=== PATIENT | male | born 1975 | race Caucasian/White ===

== ENCOUNTER 2018-08-11 13:18 | Emergency (ER) | payer BC ==
[2018-08-11 13:45] VITALS: BP 134/79
--- NOTE | 2018-08-11 14:38 | UC ---
UC General HPI - HPI Summary HPI Summary: Pt presents with c/o sudden onset of malaise, joint pain, fever, chills X 2 days. Pt denies cough, ST, or ear pain. Pt is concerned that he has lyme disease. 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 and is "always in tall grass" - History of Current Complaint Chief Complaint: UCGeneralIllness Stated Complaint: FEVER JOINT PAIN CHILLS Time Seen by Provider: 08/11/18 14:28 Hx Obtained From: Patient Onset/Duration: Sudden Onset, Lasting Days, Still Present Timing: Constant Onset Severity: Mild Current Severity: Mild Pain Intensity: 2 Associated Signs & Symptoms: Positive: Fever, Weakness, Other - joint pain, - Allergy/Home Medications Allergies/Adverse Reactions: Allergies Allergy/AdvReac Type Severity Reaction Status Date / Time bee venom protein (honey bee) Allergy Hives Verified 08/11/18 13:38 PMH/Surg Hx/FS Hx/Imm Hx Previously Healthy: Yes - Surgical History Surgical History: Yes Surgery Procedure, Year, and Place: [place] teeth extracted - Family History Known Family History: Positive: Cardiac Disease - Social History Occupation: Employed Full-time Lives: With Family Alcohol Use: Daily Alcohol Amount: 2 beers Substance Use Type: Marijuana Smoking Status (MU): Never Smoked Tobacco Have You Smoked in the Last Year: Yes - marijuana Review of Systems All Other Systems Reviewed And Are Negative: Yes Constitutional: Positive: Fever, Chills, Fatigue Skin: Positive: Negative Eyes: Positive: Negative ENT: Positive: Negative Respiratory: Positive: Negative Cardiovascular: Positive: Negative Gastrointestinal: Positive: Negative Genitourinary: Positive: Negative Motor: Positive: Negative Neurovascular: Positive: Negative Musculoskeletal: Positive: Myalgia Neurological: Positive: Negative Psychological: Positive: Negative Is Patient Immunocompromised?: No Physical Exam Triage Information Reviewed: Yes Appearance: Well-Appearing Vital Signs: Initial Vital Signs Temp 98.5 F 08/11/18 13:39 Pulse 79 08/11/18 13:39 Resp 18 08/11/18 13:39 BP 134/79 08/11/18 13:39 Pulse Ox 97 08/11/18 13:39 Vital Signs Reviewed: Yes Eye Exam: Normal ENT Exam: Normal Dental Exam: Normal Neck exam: Normal Respiratory Exam: Normal Cardiovascular Exam: Normal Musculoskeletal Exam: Normal Neurological Exam: Normal Psychological Exam: Normal Skin Exam: Normal Course/Dx - Differential Dx - Multi-Symptom Differential Diagnoses: Other - Diagnoses Provider Diagnosis: Malaise and fatigue Discharge - Sign-Out/Discharge Documenting (check all that apply): Patient Departure All imaging exams completed and their final reports reviewed: No Studies - Discharge Plan Condition: Stable Disposition: HOME Patient Education Materials: Fatigue (ED) Referrals: [facility] [Outside] - If Needed No Primary Care Phys,NOPCP [Primary Care Provider] - Additional Instructions: Please establish care with a PCP as soon as possible. - Billing Disposition and Condition Condition: STABLE Disposition: Home
[2018-08-11 19:03] LABS: ABS Lymphocytes 0.6 10^3/ul (1.0-4.8); ABS Monocytes 0.3 10^3/ul (0-0.8); ABS Neutrophils 2.7 10^3/ul (1.5-7.7); Hematocrit 46 % (42-52); Hemoglobin 16.3 g/dL (14.0-18.0); Mean Corpuscular HGB Conc 35 g/dL (31-36); Mean Corpuscular Hemoglobin 33 pg (27-31); Mean Corpuscular Volume 93 fL (80-94); Mean Platelet Volume 9.5 fL (7.4-10.4); Nucleated Red Blood Cells % 0.1; Platelet Count 142 10^3/uL (150-450); Red Blood Count 4.97 10^6 /uL (4.18-5.48); Red Cell Distribution Width 13 % (10-15); White Blood Count 3.7 10^3/uL (3.5-10.8)
== END 2018-08-11 14:55 | disposition home or self-care (01) ==
LOC: UCEAST 13:18
DX: R53.81 Other malaise (principal); R50.9 Fever, unspecified
CPT/HCPCS: 36415; 85025; 86618; 99211; G0463

== ENCOUNTER 2019-05-20 20:54 | Inpatient (IN) | payer BC, OTHER ==
[2019-05-20 22:11] LABS: ABS Eosinophils 0.1 10^3/ul (0-0.6); ABS Lymphocytes 2.1 10^3/ul (1.0-4.8); ABS Monocytes 0.7 10^3/ul (0-0.8); Eosinophil % 0.7 %; Hematocrit 45 % (42-52); Hemoglobin 16.3 g/dL (14.0-18.0); Lymphocyte % 23.7 %; Mean Corpuscular HGB Conc 36 g/dL (31-36); Mean Corpuscular Hemoglobin 33 pg (27-31); Mean Corpuscular Volume 91 fL (80-94); Mean Platelet Volume 9.2 fL (7.4-10.4); Platelet Count 239 10^3/uL (150-450); Red Blood Count 4.95 10^6 /uL (4.18-5.48); Red Cell Distribution Width 12 % (10-15)
[2019-05-20 22:24] LABS: ALT 17 U/L (7-52); AST 28 U/L (13-39); Albumin 4.9 g/dL (3.2-5.2); Albumin/Globulin Ratio 1.6 (1-3); Alkaline Phosphatase 62 U/L (34-104); Anion Gap 9 mmol/L (2-11); BUN/Creatinine Ratio 8.8 (8-20); Blood Urea Nitrogen 12 mg/dL (6-24); CO2 Carbon Dioxide 27 mmol/L (22-32); Calcium 10.1 mg/dL (8.6-10.3); Chloride 100 mmol/L (101-111); EGFR African American 69.2 (>60); EGFR Non-African American 57.2 (>60); Glucose 134 mg/dL (70-100); Potassium 3.5 mmol/L (3.5-5.0); Sodium 136 mmol/L (135-145); Total Protein 7.9 g/dL (6.4-8.9)
[2019-05-20 22:25] LABS: Acetaminophen < 15 mcg/mL; Alcohol < 10 mg/dL (<10); Salicylate < 2.50 mg/dL (<30)
--- NOTE | 2019-05-20 22:44 | ED ---
Psychiatric Complaint - HPI Summary HPI Summary: Patient is a 44 year-old male presenting to [facility] with a chief complaint of possible manic episode, per , secondary to multiple increased stressors in the last few weeks. He states he is under a lot of stress at work because of the management he is under which has been aggravated due to the current pandemic situation. 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 She has placed a lot of pressure on the patient as she is not there, causing the patient to become more stressed. He also notes that he began feeling stressed out in February with being placed on a grand jury with knowledge of his bipolar disorder. Patient additionally has stress at home with his and two children being home. Tonight, he states his believes he is having a manic episode because he asked if he could speak to ministers, which the patient states is usual behavior for him. His made him take 4 Klonopins. He denies any suicidal or homicidal ideations. Patient expresses concerns for not wanting to stay in the hospital. He is here voluntarily. No other past medical history. Nonsmoker, daily EtOH (two beers but none tonight), marijuana use. Medications reviewed. Allergies noted. - History Of Current Complaint Chief Complaint: EDMentalHealth Time Seen by Provider: 05/20/19 21:23 Hx Obtained From: Patient Onset/Duration: Still Present Severity Currently: Moderate Character: Manic - per Aggravating Factor(s): Recent Stress Alleviating Factor(s): Nothing Related History: Positive For: Prior Psychiatric Issues - bipolar disorder Has Suicidal: Denies: Thoughts Has Homicidal: Denies: Thoughts - Allergies/Home Medications Allergies/Adverse Reactions: Allergies Allergy/AdvReac Type Severity Reaction Status Date / Time bee venom protein (honey bee) Allergy Hives Verified 05/20/19 21:21 Home Medications: Home Medications Ibuprofen TAB* [Advil TAB*] 400 mg PO QID PRN 05/05/12 [History Confirmed ] clonazePAM TAB(*) [KlonoPIN TAB(*)] 0.5 mg PO QID PRN 05/20/19 [History Confirmed 05/20/19] PMH/Surg Hx/FS Hx/Imm Hx Endocrine/Hematology History: Denies: Hx Diabetes, Hx Thyroid Disease Cardiovascular History: Denies: Hx Hypertension Respiratory History: Denies: Hx Asthma, Hx Chronic Obstructive Pulmonary Disease (COPD) GI History: Denies: Hx Ulcer Sensory History: Denies: Hx Contacts or Glasses Opthamlomology History: Denies: Hx Contacts or Glasses Psychiatric History: Reports: Hx Bipolar Disorder - Cancer History Cancer Type, Location and Year: none - Surgical History Surgical History: Yes Surgery Procedure, Year, and Place: [place] teeth extracted Infectious Disease History: No Infectious Disease History: Denies: Hx Hepatitis, Hx Human Immunodeficiency Virus (HIV), Traveled Outside the [place] in Last 30 Days - Family History Known Family History: Positive: Cardiac Disease - Social History Alcohol Use: Daily Alcohol Amount: 2 beers Hx Substance Use: Yes Substance Use Type: Reports: Marijuana Hx Tobacco Use: No Smoking Status (MU): Never Smoked Tobacco Have You Smoked in the Last Year: Yes - marijuana - Additional Comments History Additional Comments: bipolar disorder Review of Systems - ROS Summary Review of Systems Summary: Home Medications Medication Instructions Recorded Confirmed Type Ibuprofen TAB* [Advil TAB*] 400 mg PO QID PRN 05/05/12 05/20/19 History clonazePAM TAB(*) [KlonoPIN TAB(*)] 0.5 mg PO QID PRN 05/20/19 05/20/19 History Positive: Other - stress Positive: Other - possibly manic; Negative: SI, HI All Other Systems Reviewed And Are Negative: Yes Physical Exam - Summary Physical Exam Summary: General: Well-developed, Well-nourished male. No acute distress. HEENT: Normocephalic, Atraumatic. Eyes: Conjuctiva normal, PERRL. Oropharynx: Clear, mucous membranes moist, (-) exudates. Neck: Soft, FROM, (-) lymphadenopathy, (-) thyromegaly, (-) JVD. Cardiovascular: Normal sinus rhythm, (-) murmur. Lungs: Clear to auscultation bilaterally (-) wheezes, (-) rales, (-) rhonchi. Abdomen: Soft, non-tender, non-distended, (-) organomegaly, normal bowel sounds. Back: (-) CVA tenderness Extremities: No edema. Skin: Warm, dry, (-) rash. Neuro: Alert and oriented x3, moves all extremities equally. No ataxia. No gait disturbance. No sensory deficit. Normal strength, normal sensation. Psychiatric: Pressured speech, Flight of ideas, Paranoia, Tangential thinking. Triage Information Reviewed: Yes Vital Signs On Initial Exam: Initial Vitals Temp Pulse Resp BP Pulse Ox 97.8 F 96 16 139/101 97 05/20/19 21:15 05/20/19 21:15 05/20/19 21:15 05/20/19 21:15 05/20/19 21:15 Vital Signs Reviewed: Yes Procedures - Sedation Patient Received Moderate/Deep Sedation with Procedure: No Diagnostics - Vital Signs Vital Signs Temp Pulse Resp BP Pulse Ox 05/20/19 21:15 97.8 F 96 16 139/101 97 - Laboratory Lab Results: Lab Results 05/20/19 05/20/19 Range/Units 21:59 21:59 WBC 9.0 (3.5-10.8) 10^3/uL RBC 4.95 (4.18-5.48) 10^6 /uL Hgb 16.3 (14.0-18.0) g/dL Hct 45 (42-52) % MCV 91 (80-94) fL MCH 33 H (27-31) pg MCHC 36 (31-36) g/dL RDW 12 (10-15) % Plt Count 239 (150-450) 10^3/uL MPV 9.2 (7.4-10.4) fL Neut % (Auto) 66.8 % Lymph % (Auto) 23.7 % [place] % (Auto) 8.3 % Eos % (Auto) 0.7 % Baso % (Auto) 0.5 % Absolute Neuts (auto) 6.0 (1.5-7.7) 10^3/ul Absolute Lymphs (auto) 2.1 (1.0-4.8) 10^3/ul Absolute Monos (auto) 0.7 (0-0.8) 10^3/ul Absolute Eos (auto) 0.1 (0-0.6) 10^3/ul Absolute Basos (auto) 0.0 (0-0.2) 10^3/ul Absolute Nucleated RBC 0.0 10^3/ul Nucleated RBC % 0.0 Sodium 136 (135-145) mmol/L Potassium 3.5 (3.5-5.0) mmol/L Chloride 100 L (101-111) mmol/L Carbon Dioxide 27 (22-32) mmol/L Anion Gap 9 (2-11) mmol/L BUN 12 (6-24) mg/dL Creatinine 1.36 H (0.67-1.17) mg/dL Est GFR ( Amer) 69.2 (>60) Est GFR (Non-Af Amer) 57.2 (>60) BUN/Creatinine Ratio 8.8 (8-20) Glucose 134 H (70-100) mg/dL Calcium 10.1 (8.6-10.3) mg/dL Total Bilirubin 0.80 (0.2-1.0) mg/dL AST 28 (13-39) U/L ALT 17 (7-52) U/L Alkaline Phosphatase 62 (34-104) U/L Total Protein 7.9 (6.4-8.9) g/dL Albumin 4.9 (3.2-5.2) g/dL Globulin 3.0 (2-4) g/dL Albumin/Globulin Ratio 1.6 (1-3) TSH Pending Salicylates < 2.50 (<30) mg/dL Acetaminophen < 15 mcg/mL Serum Alcohol < 10 (<10) mg/dL Result Diagrams: 05/20/19 21:59 05/20/19 21:59 Lab Statement: Any lab studies that have been ordered have been reviewed, and results considered in the medical decision making process. Re-Evaluation - Re-Evaluation First Eval Re-Evaluation Time: 23:00 Comment: Patient is medically clear for [facility]HE. Course/Dx - Course Course Of Treatment: 44-year-old male presents for mental health evaluation. He states his insisted he come in because she thinks he is manic. He does have bipolar disorder. He has been under a lot of stress lately. At work. Being on a grand jury with violent crime. He is mildly agitated and anxious upon arrival. Physical exam is otherwise within normal limits. Workup shows no significant abnormality. Patient is seen by mental health and accepted for admission by Dr. Solis. - Differential Dx/Clinical Impression Provider Diagnosis: Psychotic disorder - Physician Notifications Discussed Care Of Patient With: Jacob Solis - psychiatry Time Discussed With Above Provider: 01:00 Instructed by Provider To: Other - Tonia Ortiz has evaluated the patient and discussed the patient's case with Irma. They feel admission is appropriate for the patient. Discharge ED - Sign-Out/Discharge Documenting (check all that apply): Patient Departure - Patient admitted by Dr. Solis to [facility]. - Discharge Plan Condition: Stable Disposition: PSYCHIATRIC FACILITY-[facility] [place] - Billing Disposition and Condition Condition: STABLE Disposition: Psychiatric Facility [facility] - Attestation Statements Document Initiated by Scribe: Yes Documenting Scribe: Ava Graham Provider For Whom Reza is Documenting (Include Credential): Asmita Hull MD Scribe Attestation: Ava Butler, scribed for Asmita Hull MD on 05/21/19 at 0536. Scribe Documentation Reviewed: Yes Provider Attestation: The documentation as recorded by the Ava foote accurately reflects the service I personally performed and the decisions made by me, Asmita Hull MD Status of Scribe Document: Viewed
[2019-05-21] MEDS ORDERED: LORazepam TAB(*) 1 MG PO ONE ×2 (00:30→21:10)
[2019-05-21 00:54] LABS: Urine Appearance Clear; Urine Bilirubin Negative (Negative); Urine Blood Negative (Negative); Urine Color Straw; Urine Glucose Negative (Negative); Urine Ketones Negative (Negative); Urine Nitrite Negative (Negative); Urine Protein Negative (Negative); Urine Specific Gravity 1.003 (1.010-1.030); Urine Urobilinogen Negative (Negative)
[2019-05-21 01:14] LABS: Urine Benzodiazepine Screen None Detected (None Detect); Urine Opiates Screen None Detected (None Detect)
[2019-05-21] MEDS ORDERED: Acetaminophen TAB* 325 MG PO PRN (01:37)
[2019-05-21] MEDS ORDERED: Al Hydrox/Mg Hydrox/Simet LIQ* 30 ML UDC PO PRN (01:37)
[2019-05-21] MEDS: LORazepam TAB(*) 1 MG PO PRN ×3 (04:00→17:13)
[2019-05-21] MEDS ORDERED: Ibuprofen TAB* 400 MG PO PRN (04:48)
[2019-05-21] MEDS: Vitamin THERAPEUTIC TAB PO SCH (10:02)
[2019-05-21] MEDS ORDERED: Ibuprofen TAB* 200 MG PO PRN (12:00)
--- NOTE | 2019-05-21 17:00 | HP ---
INITIAL PSYCHIATRIC EVALUATION: DATE OF ADMISSION: 05/21/19 CHIEF COMPLAINT: "I'm easily overwhelmed, I just feel confused." HISTORY OF PRESENT ILLNESS: The patient is a 44-year-old male who was brought to [facility] ER by his . The patient reported multiple stressors including being overworked at his job. 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 The patient reported that since the pandemic his curriculum supervisor stopped coming to work, so the responsibility was shifted on him and right now he felt overwhelmed and disorganized. The patient also reported that he was given legal responsibility to be in a grand jury and with his bipolar he just could not focus or concentrate. The patient reported at home he has to deal with his and children. He felt that he hallucinates. During this evaluation, the patient appeared to be a poor historian. The collateral information indicated that the patient has history of bipolar. The patient reported that before this admission his gave him 4 tablets of Klonopin 0.5 mg each and he has noticed difficulties in completing his thoughts. The patient appeared to be exhibiting thought blocking. He appeared to be psychotic, responding to internal stimuli, extremely disorganized. The patient stated that the last time he was manic was about 4 years ago. He described his mood as severely depressed. He reported poor appetite, low energy, crying spells, hopelessness, helplessness, and worthlessness. The patient exhibited poor concentration and attention during this evaluation. At one point, the patient was tangential and circumstantial. Denies any ritualistic behavior. The patient during this evaluation is grossly psychotic and delusional. He continued to be apologetic, asking me to reassure him that everything is going to be well. The patient appeared to be paranoid. He denies any past history of physical, verbal, emotional, or sexual abuse. The patient endorsed mood swings and racing thoughts. He appears to have poor insight and judgment. The patient also complained of excessive worry. PAST PSYCHIATRIC HISTORY: The patient has been seeing Dr. Bustos, who diagnosed him with bipolar 1 disorder, current episode manic. The patient has been taking Klonopin 0.5 mg p.o. 4 times daily. He is also taking ibuprofen, which is Advil 400 mg p.o. 4 times daily p.r.n. muscle pain. The patient denies past history of suicide attempt, self-mutilation, current access to guns. He denies any history of violence or problem with anger management. LEGAL HISTORY: The patient denies. SUBSTANCE ABUSE HISTORY: Alcohol, the patient describes himself as a social drinker. On further questioning, he revealed that he started drinking alcohol at age of 16. Currently drinks about 2 to 3 bottles of beer. The last time he drank alcohol was yesterday, only 1 bottle of beer. The patient denies ever losing control. He denies any past history of withdrawal symptoms, delirium tremens, or any blackout. Collateral information indicated that the patient also experimented with marijuana (cannabis). The last time he took marijuana was about 2 months ago. The patient denies ever using nicotine, cocaine, heroin , PCP, LSD, crystal meth, K2, pink. The patient also denies ever using any illicit drugs intravenously. The patient stated that he has never gone for any substance abuse rehabilitation program. PAST MEDICAL HISTORY: The patient is seeing Dr. Serrano. He denies any history of asthma, diabetes, hypertension, hypothyroidism, traumatic brain injury; exposures to HIV, TB, or hepatitis. PAST SURGICAL HISTORY: The patient had wisdom teeth extraction about [address] Hart. ALLERGIES: The patient is allergic to BEES and LITHIUM and the LITHIUM causes rash. FAMILY HISTORY: Significant for anxiety, depression, and bipolar. The patient reported that his [id number] committed suicide by overdosing on medications. The patient also described his father as an alcoholic. SOCIAL HISTORY: The patient was born and raised in [place], has a brother who is 47 years old and a half-sister. for 10 years. He has 2 children, the son is 8-1/2 years old and another son is 5 years old. 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 He graduated high school in 1994. REVIEW OF SYSTEMS: All the systems were reviewed. They were negative except for those discussed under the HPI. PHYSICAL EXAMINATION VITAL SIGNS: On admission, temperature is 97.8, respiratory rate is 18, pulse is 73, blood pressure is 103/92, oxygen saturation is 99%. DIAGNOSTIC STUDIES/LAB DATA: The patient's lab results: The WBC is 9, hemoglobin is 15.3, hematocrit is 45, platelets are 239. Sodium is 136, potassium is 3.5, chloride is 100, bicarbonate is 27, BUN is 12, creatinine is 1.36. Urine drug screen is positive for THC. Glucose is 134. The EKG is pending. MENTAL STATUS EXAM: The patient is alert and oriented to person, place, situation, and time. He is appropriately dressed in hospital scrub, maintains poor eye contact. His speech is spontaneous with low rate and volume. Thought process is disorganized. The patient is exhibiting tangential or circumstantial thought process. Mood is described as severely depressed. Affect is blunted. He denies any current suicidal or homicidal ideation. Language is intact, but with some thought blocking. Gait is stable. Attention and concentration are poor. No evidence of abnormal involuntary movements. Insight and judgment are poor. Cognitively, both recent and remote memory is intact. The patient denies perceptual difficulties, but during this evaluation the patient appeared to be responding to internal stimuli and he is also paranoid and extremely disorganized. PSYCHIATRIC DIAGNOSES: 1. Bipolar 1 disorder, current episode depressed, severe, with psychotic features. 2. Generalized anxiety disorder. SUBSTANCE ABUSE DIAGNOSIS: Mild alcohol use disorder. MEDICAL DIAGNOSIS: None acute. ASSESSMENT AND PLAN: The patient is a 44-year-old male who was brought by his to [facility] for psychiatric evaluation and medication management. The patient at this point is severely depressed and is also psychotic and disorganized. The patient reported allergies to LITHIUM, LITHIUM causes rash. At this point, the patient will be admitted to [facility]. He will be monitored on daily basis. The patient will be started on Abilify 5 mg p.o. q.h.s. to control agitation and psychosis, Depakote ER 500 mg p.o. b.i.d. for mood stabilization. Depakote level will be due on 05/26/19. Risks and benefits of medications have been discussed with the patient. The patient is advised to notify staff if he feels suicidal or homicidal. He is counseled not to overdose on his medications. The patient is advised to participate in both individual and group psychotherapy. The problem list for this patient includes depression, altered thought process, and anxiety. All this problem list will be treated with medication management and psychotherapy. TOTAL TIME SPENT: 60 minutes. [id number]/[facility] #: [id number] MARCELA
--- NOTE | 2019-05-21 17:49 | HP ---
HISTORY AND PHYSICAL: DATE OF ADMISSION: ADDENDUM: PHYSICAL EXAMINATION Please refer to the physical examination done in the ER. [id number]/[facility] #: [id number]
[2019-05-21] MEDS: clonazePAM TAB(*) 0.5 MG PO PRN (20:06)
[2019-05-21] MEDS: ARIPiprazole TAB* 5 MG PO SCH (20:06)
[2019-05-21] MEDS: Divalproex ER TAB(*) 500 MG PO SCH (20:07)
[2019-05-21] MEDS ORDERED: LORazepam TAB(*) 1 MG ONE (20:40)
[2019-05-22 08:17] LABS: HDL Cholesterol 64.1 mg/dL
[2019-05-22] MEDS: Vitamin THERAPEUTIC TAB PO SCH (08:46)
[2019-05-22] MEDS: Divalproex ER TAB(*) 500 MG PO SCH ×2 (08:46→23:40)
[2019-05-22] MEDS ORDERED: Divalproex ER TAB(*) 500 MG PO SCH (09:00)
[2019-05-22] MEDS: LORazepam TAB(*) 1 MG PO PRN (15:06)
[2019-05-22] MEDS: clonazePAM TAB(*) 0.5 MG PO PRN (22:31)
[2019-05-22] MEDS: ARIPiprazole TAB* 5 MG PO SCH (23:40)
[2019-05-22] MEDS ORDERED: Lorazepam PYXIS KEY ONE (23:45)
[2019-05-22] MEDS ORDERED: LORazepam INJ* 2 MG/ML 1 ML VIAL ONE (23:46)
[2019-05-22] MEDS ORDERED: Haloperidol INJ IV/IM* 5 MG/ML AMP ONE (23:46)
[2019-05-23] MEDS: Vitamin THERAPEUTIC TAB PO SCH (09:16)
[2019-05-23] MEDS: Divalproex ER TAB(*) 500 MG PO SCH (10:37)
[2019-05-23] MEDS: LORazepam TAB(*) 0.5 MG PO SCH (16:42)
--- NOTE | 2019-05-23 20:00 | PN ---
Subjective - Subjective Date of Service: 05/23/19 Service Type: 98624 Hosp care 35 min high complexity Subjective: I meet Heath for the first time today. He has symptoms of hypomania, such as being hyperverbal, which he assures me he is all the time. He is slightly "sensitive" bordering on paranoid that our conversation will not go well and that he will be forced to stay here longer. In conversation, it becomes clear that Heath is significantly improved over admission. The extreme paranoia and the references to internal preoccupation are no longer relevant. Heath makes good points, in rational, relevant, and acknowledges that he was not well when he was admitted. We discuss medications. He is unwilling to take Depakote as he gets allergy rashes and a foggy feeling. He states lithium gave him hives. He is happy with the clonazepam he has been taking at home, although he is not happy with the drowsiness he feels in the morning. We will therefore put him on a schedule of Ativan throughout the day and increase the dose at bedtime to help him sleep and improve his return to euthymia rather than the hypomania he is experiencing right now. He declines to take another mood stabilizer although we do talk about gabapentin, trileptal, and Abilify. Heath identifies that he needs time for himself, time for self care and relaxation, and possibly time for running. Objective - General Observations Appearance: Disheveled Appears Stated Age: Yes Stature: WNL Posture: WNL Eye Contact: Intense Behavior/Activity: Accelerated - Interaction Observations Attitude Towards Examiner: Cooperative, Anxious Stated Mood: Euthymic, Expansive Affect: Full, Bright Speech Pattern/Tone: Clear, Appropriate, Normal Volume Thought Process: Coherent, Goal Directed Perception: WNL Thought Content: Preoccupation/Ruminations Hallucination Type: None Delusion Type: None - Cognitive Function Orientation: A&O x 4 Level of Consciousness: Awake, Alert, Appropriate Cognition: WNL Estimated Intelligence: Normal Insight: WNL, Difficulty Acknowledging Presence of Psyciatric Problems Judgment Within Normal Limits: No Ability to Make Reasonable Decisions: Moderately Impaired - Medication Compliance Cooperative with Inpatient Medication Regimen: Partial - Group Participation Participates in Group Activities: Partial Assessment - Assessment Merits Inpatient Hospitalization: For Immediate Safety Inpatient DSM-V Dx: F31.64 Clinical Impression: Heath is a 44-year-old white man diagnosed in the past with bipolar 1 disorder who comes to the hospital being disorganized, paranoid, and responding to internal stimuli following a long stretch of high stress such as being one of few at work, feeling as though he is 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 Plan - Plan Treatment Plan: Name: HEATH LR Birthdate: 1975 [id number] Set up a schedule of Ativan dispensing. 0.5 mg three times a day and 1-2 mg at bedtime. Discuss mood stabilizer possibility again before discharge tomorrow. Medications: Current Medications Acetaminophen (Tylenol Tab*) 650 mg PO Q4H PRN PRN Reason: PAIN or TEMP > 101 F Al Hydrox/Mg Hydrox/Simethicone (Maalox Plus*) 30 ml PO Q4H PRN PRN Reason: INDIGESTION Ibuprofen (Motrin Tab*) 400 mg PO QID PRN PRN Reason: DISCOMFORT Last Admin: 05/22/19 05:52 Dose: 400 mg Lorazepam (Ativan Tab(*)) 0.5 mg PO 0800,1200,1700 RODRIGUEZ Last Admin: 05/23/19 16:42 Dose: 0.5 mg Lorazepam (Ativan Tab(*)) 1 mg PO BEDTIME RODRIGUEZ Multivitamins (Theragran Tab*) 1 tab PO DAILY RODRIGUEZ Last Admin: 05/23/19 09:16 Dose: 1 tab - Discharge Plan Discharge Plan: Outpatient Follow Up Outpatient Program: Private Clinician(s)
[2019-05-23] MEDS: LORazepam TAB(*) 1 MG PO SCH (20:59)
[2019-05-24] MEDS: Vitamin THERAPEUTIC TAB PO SCH (12:31)
[2019-05-24] MEDS: LORazepam TAB(*) 0.5 MG PO SCH ×3 (12:31→17:42)
--- NOTE | 2019-05-24 20:03 | PN ---
Subjective - Subjective Date of Service: 05/24/19 Service Type: 84374 Hosp care 35 min high complexity Subjective: There was a family meeting today with Heath, Mary Stephenson, [employer]ATOR, Jinny Lowery ( Heath's ), and me by phone for about an hour. We discussed medications and how Heath was initially unwilling to take Abilify, the mood stabilizing agent we eventually chose. Jinny and Heath did a lot of negotiating and Heath's heightened emotions as well as Jinny's were difficult to navigate at times. In the end, however, Willian decided to stay another night and take Abilify for the night. Objective - General Observations Appearance: Disheveled Appears Stated Age: Yes Stature: WNL Posture: Tense Eye Contact: Average Behavior/Activity: WNL, Agitated - Interaction Observations Attitude Towards Examiner: Cooperative, Anxious, Defensive Stated Mood: Dysphoric, Irritable, Anxious Affect: Labile Speech Pattern/Tone: Clear, Appropriate, Normal Volume Thought Process: Coherent Perception: WNL Thought Content: Preoccupation/Ruminations Hallucination Type: None Delusion Type: None - Cognitive Function Orientation: A&O x 4 Level of Consciousness: Awake, Alert, Appropriate Estimated Intelligence: Normal Insight: Difficulty Acknowledging Presence of Psyciatric Problems Judgment Within Normal Limits: No Ability to Make Reasonable Decisions: Mildly Impaired - Medication Compliance Cooperative with Inpatient Medication Regimen: Yes - Group Participation Participates in Group Activities: Partial Assessment - Assessment Merits Inpatient Hospitalization: For Immediate Safety Plan - Plan Treatment Plan: Name: HEATH LR Birthdate: 1975 [id number] Heath plans to take Abilify 5 mg tonight to see if it's tolerable and also in a nod to wanting to please his . In addition, he is still willing to take Ativan on a schedule and follow up with Dr. Adal Bustos and Carolyn Sosa. Continued Medication Management: Different Medication Medications: Current Medications Acetaminophen (Tylenol Tab*) 650 mg PO Q4H PRN PRN Reason: PAIN or TEMP > 101 F Al Hydrox/Mg Hydrox/Simethicone (Maalox Plus*) 30 ml PO Q4H PRN PRN Reason: INDIGESTION Aripiprazole (Abilify Tab*) 5 mg PO BEDTIME RODRIGUEZ Ibuprofen (Motrin Tab*) 400 mg PO QID PRN PRN Reason: DISCOMFORT Last Admin: 05/22/19 05:52 Dose: 400 mg Lorazepam (Ativan Tab(*)) 0.5 mg PO 0800,1200,1700 RODRIGUEZ Last Admin: 05/24/19 17:42 Dose: 0.5 mg Lorazepam (Ativan Tab(*)) 1 mg PO BEDTIME RODRIGUEZ Last Admin: 05/23/19 20:59 Dose: 1 mg Multivitamins (Theragran Tab*) 1 tab PO DAILY RODRIGUEZ Last Admin: 05/24/19 12:31 Dose: 1 tab - Discharge Plan Discharge Plan: Outpatient Follow Up Outpatient Program: Private Clinician(s)
[2019-05-24] MEDS ORDERED: ARIPiprazole TAB* 5 MG PO SCH (21:00)
[2019-05-24] MEDS: LORazepam TAB(*) 1 MG PO SCH ×2 (21:01→22:03)
[2019-05-25] MEDS: LORazepam TAB(*) 0.5 MG PO SCH ×2 (08:12→12:16)
[2019-05-25] MEDS: Vitamin THERAPEUTIC TAB PO SCH (08:13)
[2019-05-25 08:45] VITALS: BP 144/75
--- NOTE | 2019-05-26 10:44 | DS ---
DISCHARGE SUMMARY: DATE OF ADMISSION: 05/21/19 DATE OF DISCHARGE: 05/25/19 PROVIDER: Michelle Hutchins NP in Psychiatry. SUPERVISING PHYSICIAN: Dr. Jacob Solis.* (DICTATED BY MICHELLE HUTCHINS NP) DIAGNOSIS: Bipolar I disorder, current episode mixed severe with psychotic features. CONDITION AT THE TIME OF DISCHARGE: Improved. Psychiatrically cleared. Stable. Participated in some groups and was social with peers. His is agreeable to discharge. Heath is eager for discharge. He has done well here psychiatrically. He tolerated the addition of Ativan, the discontinuation of clonazepam, and the addition of Abilify well. He will be attending prior clinicians including Dr. Adal Bustos and Carolyn Finley. MENTAL STATUS EXAM AT THE TIME OF DISCHARGE: Heath is calm, cooperative, and makes good eye contact. He is alert and oriented x4. His grooming is adequate. His speech pace is normal. His thought processes are logical. He is not psychotic or delusional. He denies AH, VH, SI, and HI. Insight and judgment are fair to good. He is willing to follow up and he is urged to see a therapist. DISCHARGE INSTRUCTIONS TO THE PATIENT: A. Medications: 1. Aripiprazole 5 mg daily. 2. Lorazepam 0.5 mg at 0800, noon, 1700, and 2100. At the 2100 dose, he may increase that up to 2 mg. B. Diet is regular. C. Activities as tolerated. He is a nonsmoker. There are no studies pending at the time of discharge. D. Followup care: He has an appointment with Carolyn Finley on Thursday, , at 6:30 p.m. and he has the option of having a video appointment with Dr. Bustos within a week of discharge. E. Disposition: He is going to his home. F. Substance abuse followup is not indicated. HOSPITAL COURSE: This is taken from the history and physical of Abdullahi Lakhani MD. Chief complaint: "I am easily overwhelmed. I just feel confused." The patient is a 44-year-old male who was brought to [facility] ER by his . The patient reported multiple stressors including being overworked at his job. 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 The patient also reported that he was given legal responsibility to be in a grand jury, and with his bipolar disorder, he just could not focus or concentrate. The patient reported that at home he has to deal with his and children. He felt that he hallucinates during this evaluation. The patient appeared to be a poor historian. The collateral information indicated that the patient has a history of bipolar disorder. The patient reported that before this admission his gave him 4 tablets of Klonopin 0.5 mg each and he has noticed difficulties in completing his thoughts. The patient appeared to be exhibiting thought blocking. He appeared to be psychotic, responding to internal stimuli, extremely disorganized. The patient stated that the last time he was manic was about 4 years ago. He describes his mood as severely depressed. He reported poor appetite, low energy , crying spells, hopelessness, helplessness, and worthlessness. The patient exhibited poor concentration and attention during this evaluation. At one point , the patient was tangential and circumstantial. He denies any ritualistic behavior. The patient during this evaluation is grossly psychotic and delusional. He continued to be apologetic, asking me to reassure him that everything is going to be well. The patient appeared to be paranoid. He denies any past history of physical, verbal, emotional, or sexual abuse. The patient endorsed mood swings and racing thoughts. He appears to have poor insight and judgment. The patient also complained of excessive worry. Part B: Psychiatric treatment was rendered. Heath was admitted to the adult behavioral health unit and was placed on 15-minute checks for safety. He was soon increased to 30-minute checks and staff pass privileges. He was safe on all checks. Heath did well in the unit and went to many groups. On 05/23/19, I met Heath for the first time. He has symptoms of hypomania such as being hyperverbal, which he assures me he is all of the time. He is slightly "sensitive" bordering on paranoid that our conversations will not go well and he will be forced to stay here longer. In conversation, it becomes clear that Heath has significantly improved over admission. The extreme paranoia and the references to internal preoccupation from the H&Pare no longer relevant. Heath makes good points in rational relevant ways and acknowledges that he was not well when he was admitted. We discussed medications. He is unwilling to take Depakote as he gets allergy rashes and a foggy feeling. He states lithium gives him hives. He is happy with the clonazepam he has been taking at home, although he is not happy with the drowsiness he feels in the morning. We will therefore put him on a schedule with Ativan throughout the day and increase the dose at bedtime to help him sleep and improve his return to euthymia rather than the hypomania he is experiencing right now. On 05/13/2019, he declines to take another mood stabilizer, although we did talk about gabapentin, Trileptal, and Abilify. Heath identifies that he needs time for himself, time for self-care and relaxation and possibly time for running. On 05/24/19, there was a family meeting with Heath; Mary Stephenson LCSW; Jenna Delores, Heath's ; and me by phone for about an hour. We discussed medications and how Heath was initially unwilling to take Abilify as mood stabilizing agent we eventually chose. Jenna and Heath did a lot of negotiating and Heath's heightened emotions as well as Jenna's were difficult to navigate at times. In the end, however, Heath decided to stay another night and take Abilify that evening. On 05/25/19, Heath was discharged around 2 p.m. to his who picked him up and took him home. Each day, Heath progressed to a less and less pressured hypomanic state. He is easily re-directed now and he is eager to go home and be with his family. Because Heath is on an atypical antipsychotic, it should be noted that his hemoglobin A1c is 5.6, triglycerides are 83, cholesterol 163, LDL cholesterol is 82, HDL cholesterol is 64.1. Incidentally, his TSH is 2.1. No consults were entered for Heath. He is doing well. He is much improved. His speech most notably is less pressured and less rapid. In addition, he is no longer psychotic and he is able to form coherent thoughts exhibiting no psychotic symptoms. He is future oriented. He denies suicidal ideation and any hallucinations. We wish him well. MICHELLE HUTCHINS, AUTO P[employer]TER [id number]/[facility] #: [id number] [facility] HOSPITALCatrina
== END 2019-05-25 13:45 | disposition home or self-care (01) | DRG 753 ==
LOC: ED 20:54 → BSU 05-21 04:18
PROVIDERS: ADMIT Psychiatry & Neurology Psychiatry; ATTEND Psychiatry & Neurology Psychiatry
DX: F31.64 Bipolar disorder, current episode mixed, severe, with psychotic features (principal); F41.1 Generalized anxiety disorder; Z88.8 Allergy status to other drugs, medicaments and biological substances; Z91.030 Bee allergy status; Z81.8 Family history of other mental and behavioral disorders; Z81.1 Family history of alcohol abuse and dependence
CPT/HCPCS: 36415; 80053; 80061; 80307; 80320; 80329; 81003; 83036; 84443; 85025; 99222; 99233; 99238; 99285; A9270-GY; G0480; J1630; J2060